=== PATIENT | female | born 1995 | race Caucasian/White ===

== ENCOUNTER 2016-12-11 21:30 | Emergency (ER) | payer BC ==
[2016-12-11 21:42] VITALS: BP 138/83; PULSE 84; RESP 18; TEMP 97.8
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
== END 2016-12-11 22:23 | disposition home or self-care (01) ==
LOC: EC 21:30
DX: H10.9 Unspecified conjunctivitis (principal); Z79.899 Other long term (current) drug therapy; Z88.5 Allergy status to narcotic agent; F17.200 Nicotine dependence, unspecified, uncomplicated
CPT/HCPCS: 99282